=== PATIENT | female | born 1955 | race Caucasian/White ===

== ENCOUNTER 2018-12-27 13:48 | Observation (INO) ==
[2018-12-27] MEDS ORDERED: Isovue-370 500 ML BOTTLE IVP ONE ×2 (14:07→14:30)
--- NOTE | 2018-12-27 14:10 | Emergency Department Note ---
Disposition Clinical Impression: Intractable epigastric abdominal pain, Duodenal mass, S/P ERCP, Dehydration Renal cancer Qualifiers: Laterality: right Qualified Code(s): C64.1 - Malignant neoplasm of right kidney, except renal pelvis Disposition: Admitted As Inpatient Condition: Fair Referrals: Esteban Castellon DO [Primary Care Provider] - Forms: ED Satisfaction Letter, Work/School Release Time of Disposition: 17:22 General Adult HPI - General Chief complaint: ED Abdominal Pain Stated complaint: Abdominal pain Time Seen by Provider: 12/27/18 13:59 Source: patient, EMS Nursing Notes Reviewed: Yes Vital Signs Reviewed: Yes - History of Present Illness HPI Narrative: 63-year-old female with history of renal and duodenal cancer who presents the emergency department with severe abdominal pain for the past 2 days. She was sent from the cancer center today due to this pain. She states it started after episodes of vomiting and has persisted over the last 2 days. She states she has attempted the use of Maalox with slight improvement in her pain. She otherwise has had a few episodes of vomiting, most recently last night. She otherwise denies any fever, back. Pain, Chest pain, shortness of breath. She did have recent EGDon 12/16/18 showed biliary papillary stenosis, with performance of b iliary sphincterectomy, placement of a stent in the common bile duct. Recent CT abdomen/pelvis on sit 11/14/18 shows a large right-sided renal carcinoma involving the lower pole extending into the right renal hilum with scattered retroperitoneal nodes with abnormal pancreatic duct and biliary ductal dilation likely secondary to a duodenal mass. Pain Scale: 9 - Related Data Home Medications Medication Instructions Recorded Confirmed Lisinopril [Zestril] 10 mg PO DAILY 11/28/18 12/27/18 metFORMIN [Glucophage] 1,000 mg PO BIDWM 11/28/18 12/27/18 Ibuprofen [Motrin] 600 mg PO Q8HR PRN 12/27/18 12/27/18 Previous Rx's Medication Instructions Recorded HYDROcodone/Acet 5/325 mg [[place] 1 tab PO Q6H PRN #14 tab 04/29/17 5-325 mg] Citalopram [CeleXA] 20 mg PO DAILY #30 tablet 11/29/18 Ondansetron HCl [Zofran] 4 mg PO Q6HR PRN #20 tab 12/14/18 OxyCODONE/APAP 5/325 [Percocet 1 each PO Q8HR PRN 30 Days #90 12/14/18 5/325 MG] tablet Allergies Allergy/AdvReac Type Severity Reaction Status Date / Time metronidazole [From Flagyl] AdvReac Itching Verified 12/27/18 12:59 Penicillins [PCN] AdvReac See Verified 12/27/18 12:59 Comments Review of Systems: ROS per history of present illness, all other systems reviewed and negative or normal. All systems ED: reviewed and negative except as stated. 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 No apparent distress. Follow commands. Appears stated age. Neck: No JVD. Trachea midline. Neck supple. Eyes: PERRL. No scleral icterus. HENT: Normocephalic and atraumatic. Moist mucus membranes. Cardiovascular: Regular rate and rhythm. Normal S1 and S2. No murmurs appreciated. Normal capillary refill. Extremities well perfused with 2+ distal pulses bilaterally. No edema. Pulmonary: Normal and equal breath sounds bilaterally, anteriorly and posteriorly. No wheezes, rales, or rhonchi. Not in respiratory distress. Speaks in full sentences. Abdomen: Significant tenderness diffusely but more so in the epigastric area. There is guarding. There is no rebound tenderness. Neuro: Alert and oriented x3. No slurred speech. No focal deficits noted. Skin: No rashes noted on visualized skin. Musculoskeletal: No bony abnormalities visualized. Moves all extremities. Psych: Normal mood. Pleasant. Makes appropriate eye contact. - General General appearance: alert Course - Reevaluation(s) Reevaluation #1: Updated patient and family on plan for admission. Pending CTs. Time: 16:13 Vital Signs Temperature 98.6 F 12/27/18 13:51 Pulse Rate 87 12/27/18 13:51 Respiratory Rate 15 12/27/18 13:51 Blood Pressure 173/81 12/27/18 13:51 O2 Sat by Pulse Oximetry 94 12/27/18 13:51 Temperature 98.6 F 12/27/18 13:51 Pulse Rate 72 12/27/18 17:29 Respiratory Rate 17 12/27/18 17:29 Blood Pressure 144/66 12/27/18 17:29 O2 Sat by Pulse Oximetry 97 12/27/18 17:29 Oxygen Delivery Oxygen Delivery Room Air Medical Decision Making - MDM Narrative Medical decision making narrative: 63-year-old female with history of renal and duodenal cancer who presents emergency department with intractable nausea, vomiting and abdominal pain. The patient was sent from oncology office for CT chest/abdomen/pelvis and likely MRI of the lumbar and thoracic spine to evaluate for possible nephrectomy. On arrival the patient is significantly anxious and then acute distress complaining of significant abdominal pain. Vital signs are stable upon arrival. She does have guarding diffusely with significant pain in the epigastrium and right upper quadrant. The patient is recently status post ERCP. The patient was given IV fluids as well as pain medication with improvement in her symptoms though she does continue to be severely anxious. Laboratory evaluation shows no evidence of anemia, leukocytosis or electrolyte abnormality. Patient does have slight elevated BUNs/creatinine ratio. Lactate not elevated. She is no evidence of urinary tract infection. Troponin 1 negative. Otherwise her lipase is 11 and LFTs are unremarkable. CT abdomen/pelvis shows no acute findings other than interval placement of, bile duct stent with resultant air in the biliary tree. Otherwise no significant changes in her right renal mass. CT angios chest shows no evidence of pulmonary embolism. Given the patient's intractable nausea, vomiting and abdominal pain to believe she warrants admission. Oncology sent the patient to the emergency department for admission and had a [place] contacted urology to consult on the patient's case will be admitted. Discussed case with on-call hospitalist Dr. Silva who agrees with plan for admission and accepts the patient to the inpatient service. Patient agrees with and understands course of treatment plan including plan for admission. All questions answered. . - Medical Records Medical records reviewed: Yes I reviewed the patient's medical records. - Lab Data Lab results reviewed: Yes I reviewed the patient's lab results. Result diagrams: 12/27/18 14:07 12/27/18 14:07 Lab Results 12/27/18 12/27/18 12/27/18 Range/Units 14:07 14:07 14:07 WBC 6.0 (4.3-11.1) K/mcL RBC 4.09 (3.82-4.97) M/mcL Hgb 12.0 (11.5-15.4) g/dL Hct 35.7 (35.3-44.9) % MCV 87.3 (83.0-100.0) fL MCH 29.3 (28.0-33.3) pg MCHC 33.6 (31.6-35.5) g/dL RDW 12.6 (11.5-14.5) % Plt Count 249 (140-400) K/mcL MPV 9.4 (9.4-12.4) fL Immature Gran % 0.5 (0-4) % Seg Neutrophils % 66.7 % Lymphocytes % 19.4 % Monocytes % 11.4 % Eosinophils % 1.2 % Basophils % 0.8 % Neutrophils # 4.0 (1.6-8.9) K/mcL Lymphocytes # 1.2 (0.6-4.6) K/mcL Monocytes # 0.7 (0.0-1.3) K/mcL Eosinophils # 0.1 (0.0-0.6) K/mcL Basophils # 0.1 (0.0-0.2) K/mcL Sodium 135 L (136-145) mEq/L Potassium 4.2 (3.5-5.1) mEq/L Chloride 99 (98-107) mEq/L Carbon Dioxide 25 (23-29) mEq/L BUN 19 (8-23) mg/dL Creatinine 0.71 (0.60-1.20) mg/dL Est GFR ( Amer) > 60 (> 60) Est GFR (Non-Af Amer) > 60 (> 60) BUN/Creatinine Ratio 27 H (6-26) Glucose 101 (70-105) mg/dL Calculated Osmolality 282 (280-300) Lactic Acid 0.8 (0.5-2.2) mmol/L Calcium 10.7 H (8.6-10.3) mg/dL Magnesium 1.6 (1.6-2.6) mg/dL Total Bilirubin 0.4 (0.3-1.0) mg/dL Direct Bilirubin 0.1 (0.0-0.2) mg/dL Indirect Bilirubin 0.3 (0.0-1.2) mg/dL AST 8 L (13-39) Units/L ALT 8 (7-52) Units/L Alkaline Phosphatase 83 (34-104) Units/L Troponin I < 0.03 (< 0.04) ng/mL Serum Total Protein 7.1 (6.4-8.9) g/dL Albumin 4.3 (3.5-5.7) g/dL Globulin 2.8 (2.4-3.5) g/dL Albumin/Globulin Ratio 1.5 (1.1-2.2) Lipase 11 (11-82) Units/L Urine Color (Yellow) Urine Clarity (Clear) Urine pH (5.0-8.0) pH Units Ur Specific [place] (1.010-1.025) Urine Protein (Neg-Trace) mg/dL Urine Glucose (UA) (Normal) mg/dL Urine Ketones (Negative) mg/dL Urine Blood (Negative) Urine Nitrite (Negative) Urine Bilirubin (Negative) Urine Urobilinogen (Normal) mg/dL Ur Leukocyte Esterase (Negative) Ur Culture Indicated? (NO) 12/27/18 Range/Units 15:08 WBC (4.3-11.1) K/mcL RBC (3.82-4.97) M/mcL Hgb (11.5-15.4) g/dL Hct (35.3-44.9) % MCV (83.0-100.0) fL MCH (28.0-33.3) pg MCHC (31.6-35.5) g/dL RDW (11.5-14.5) % Plt Count (140-400) K/mcL MPV (9.4-12.4) fL Immature Gran % (0-4) % Seg Neutrophils % % Lymphocytes % % Monocytes % % Eosinophils % % Basophils % % Neutrophils # (1.6-8.9) K/mcL Lymphocytes # (0.6-4.6) K/mcL Monocytes # (0.0-1.3) K/mcL Eosinophils # (0.0-0.6) K/mcL Basophils # (0.0-0.2) K/mcL Sodium (136-145) mEq/L Potassium (3.5-5.1) mEq/L Chloride (98-107) mEq/L Carbon Dioxide (23-29) mEq/L BUN (8-23) mg/dL Creatinine (0.60-1.20) mg/dL Est GFR ( Amer) (> 60) Est GFR (Non-Af Amer) (> 60) BUN/Creatinine Ratio (6-26) Glucose (70-105) mg/dL Calculated Osmolality (280-300) Lactic Acid (0.5-2.2) mmol/L Calcium (8.6-10.3) mg/dL Magnesium (1.6-2.6) mg/dL Total Bilirubin (0.3-1.0) mg/dL Direct Bilirubin (0.0-0.2) mg/dL Indirect Bilirubin (0.0-1.2) mg/dL AST (13-39) Units/L ALT (7-52) Units/L Alkaline Phosphatase (34-104) Units/L Troponin I (< 0.04) ng/mL Serum Total Protein (6.4-8.9) g/dL Albumin (3.5-5.7) g/dL Globulin (2.4-3.5) g/dL Albumin/Globulin Ratio (1.1-2.2) Lipase (11-82) Units/L Urine Color Yellow (Yellow) Urine Clarity Clear (Clear) Urine pH 7.0 (5.0-8.0) pH Units Ur Specific [place] 1.009 L (1.010-1.025) Urine Protein Negative (Neg-Trace) mg/dL Urine Glucose (UA) Normal (Normal) mg/dL Urine Ketones 15 H (Negative) mg/dL Urine Blood Negative (Negative) Urine Nitrite Negative (Negative) Urine Bilirubin Negative (Negative) Urine Urobilinogen Normal (Normal) mg/dL Ur Leukocyte Esterase Negative (Negative) Ur Culture Indicated? NO (NO) - Radiology Data Radiology results reviewed: Yes I reviewed the patient's radiology results. Abdomen/Pelvis CT 12/27/18 14:07 IMPRESSION: 1. No acute pulmonary embolus. 2. Decreased size of two mediastinal lymph nodes. No new thoracic adenopathy. No new thoracic metastatic disease. 3. Interval placement of a common bile duct stent extending into the duodenum. Decreased intrahepatic and common bile duct dilation from the prior exam. The mass at the ampulla is difficult to fully characterize due to the underlying stent. 4. 6.6 cm right renal cancer is stable. 5. No new abnormality in the abdomen or pelvis. No free intraperitoneal air. D/ / 12/27/2018 16:58:07 Charlie Guillen MD / [place] Interpreting Provider: Charlie Guillen MD Chest CTA 12/27/18 14:07 IMPRESSION: 1. No acute pulmonary embolus. 2. Decreased size of two mediastinal lymph nodes. No new thoracic adenopathy. No new thoracic metastatic disease. 3. Interval placement of a common bile duct stent extending into the duodenum. Decreased intrahepatic and common bile duct dilation from the prior exam. The mass at the ampulla is difficult to fully characterize due to the underlying stent. 4. 6.6 cm right renal cancer is stable. 5. No new abnormality in the abdomen or pelvis. No free intraperitoneal air. D/ / 12/27/2018 16:58:07 Charlie Guillen MD / everett Interpreting Provider: Charlie Guillen MD Chest X-Ray 12/27/18 14:08 IMPRESSION: No evidence of acute cardiopulmonary disease. D/ / Simone Bridges MD / Simone Bridges MD Interpreting Provider: Simone Bridges MD - EKG Data EKG #1 EKG attestation: Yes I reviewed and interpreted this EKG. EKG results narrative: Normal sinus rhythm rate of 86. Normal axis. No acute ischemic changes. Compared with prior from 10/18/17 there are no significant changes. Attestation Statement - Attestation Attestation: I, Chaz Goel, examined this patient and my medical decision-making was reviewed with the PASTRYCOOK'S ASSISTANT/PA/Advanced Practice Nurse/Resident Physician. I agree with the documented findings, disposition and treatment plan as described except to the extent set forth below. 63-year-old female presents emergency Department with concerns of abdominal pain. Patient states she was recently diagnosed with renal mass, she had a biliary stent placed for improved drainage. Pain worsened after the procedure and she was sent in by the oncologist for further care and evaluation as well as for treatment of pain control. He wanted her admitted to the hospital for MRI of the spine to rule out additional lesion as well as to be evaluated by Dr. Dhaliwal the urologist for possible nephrectomy. I reviewed the EKG with the resident and agree with the interpretation.
[2018-12-27] MEDS ORDERED: *HR* FentaNYL (PF) 100 MCG/2 ML VIAL IVP ONE ×2 (14:22→16:40)
[2018-12-27] MEDS ORDERED: 0.9 % Sodium Chloride 1,000 ML IVC STA (14:22)
[2018-12-27 14:27] LABS: Basophils # 0.1 K/mcL (0.0-0.2); Basophils % 0.8 %; Eosinophils # 0.1 K/mcL (0.0-0.6); Eosinophils % 1.2 %; Hematocrit 35.7 % (35.3-44.9); Immature Granulocytes % 0.5 % (0-4); Lymphocytes # 1.2 K/mcL (0.6-4.6); Lymphocytes % 19.4 %; Mean Corpuscular HGB Conc 33.6 g/dL (31.6-35.5); Mean Corpuscular Hemoglobin 29.3 pg (28.0-33.3); Mean Corpuscular Volume 87.3 fL (83.0-100.0); Mean Platelet Volume 9.4 fL (9.4-12.4); Monocytes # 0.7 K/mcL (0.0-1.3); Monocytes % 11.4 %; Platelet Count 249 K/mcL (140-400); Red Blood Count 4.09 M/mcL (3.82-4.97); Red Cell Distribution Width 12.6 % (11.5-14.5); Segmented Neutrophils % 66.7 %
[2018-12-27 15:03] LABS: Alanine Aminotransferase 8 Units/L (7-52); Albumin 4.3 g/dL (3.5-5.7); Albumin/Globulin Ratio 1.5 (1.1-2.2); Alkaline Phosphatase 83 Units/L (34-104); Aspartate Amino Transferase 8 Units/L (13-39); BUN/Creatinine Ratio 27 (6-26); Bilirubin,Direct 0.1 mg/dL (0.0-0.2); Bilirubin,Indirect 0.3 mg/dL (0.0-1.2); Bilirubin,Total 0.4 mg/dL (0.3-1.0); Blood Urea Nitrogen 19 mg/dL (8-23); Calcium 10.7 mg/dL (8.6-10.3); Carbon Dioxide 25 mEq/L (23-29); Chloride 99 mEq/L (98-107); Globulin 2.8 g/dL (2.4-3.5); Glucose 101 mg/dL (70-105); Lipase 11 Units/L (11-82); Magnesium 1.6 mg/dL (1.6-2.6); Osmolality,Calculated 282 (280-300); Potassium 4.2 mEq/L (3.5-5.1); Sodium 135 mEq/L (136-145); Total Protein 7.1 g/dL (6.4-8.9); Troponin I < 0.03 ng/mL (< 0.04); eGFR For African Americans > 60 (> 60); eGFR For Non-African Americans > 60 (> 60)
[2018-12-27 15:31] LABS: Bilirubin,Urine Negative (Negative); Blood,Urine Negative (Negative); Clarity,Urine Clear (Clear); Color,Urine Yellow (Yellow); Glucose,Urine (UA) Normal (Normal); Ketones,Urine 15 mg/dL (Negative); Leukocyte Esterase,Urine Negative (Negative); Nitrite,Urine Negative (Negative); Protein,Urine Negative (Neg-Trace); Specific Gravity,Urine 1.009 (1.010-1.025); Urobilinogen,Urine Normal (Normal)
[2018-12-27] MEDS ORDERED: Naloxone 0.4 MG/ML INJ IVP PRN (17:30)
[2018-12-27] MEDS ORDERED: Mag Hydrox/Al Hydrox/Simeth 30 ML UDC PO PRN (17:30)
[2018-12-27] MEDS ORDERED: *HR* Promethazine 25 MG/ML VIAL IVP PRN (17:30)
[2018-12-27] MEDS ORDERED: *HR* HYDROcodone/Acet 5/325 mg TABLET PO PRN (17:31)
[2018-12-27] MEDS ORDERED: OXYCODONE Oral CONC 10 MG/0.5 ML ORAL.SYG SL PRN (17:32)
--- NOTE | 2018-12-27 17:33 | Internal Med History&Physical ---
Date of Encounter: 12/27/18 Time of Encounter: 17:33 Internal Medicine - H&P: HPI Chief complaint: Abdominal pain Admitted From: Emergency Dept Plans for Post Hospital Care: Home History of present illness: Ms. Nunez is a 63 year old female patient with a history of diabetes, hypertension, hyperlipidemia and thyroid disease who was recently found to have a right renal mass with some abnormal lesion in her duodenum presented to the ER with complaints of abdominal pain nausea and vomiting. She had recently undergo ne upper GI endoscopy. During that time she had a biliary stent placed. Biopsy of her ampulla was done which did not show any abnormal lesion. She was being worked up for her renal mass and presented to her oncology appointment today and was then sent over to the ER for further workup as she was having abdominal pain. She states that the pain has been severe since last night and present in her right upper quadrant. She is also having right flank pain. Denies any dysuria. No radiation. Not associated with diet. Pain has been unrelenting. She states that her abdominal pain has been ongoing ever since his stent was placed but it has not been this severe. She denies any fevers or chills. She had an episode of emesis this morning. No hematemesis or melena. She has been losing a lot of weight recently. Past Med Surg Social Fam HX - Past Medical History Attestation: Yes The following information was validated with the patient. Source: patient Medical history: arthritis, cancer, diabetes, GERD, hyperlipidemia, hypertension, thyroid disease Additional medical history: gastric ulcers, cataracts, kidney cancer Psychiatric history: no psych history - Past Surgical History Surgical History: cataract, cholecystectomy Additional surgical history: lt knee. 2 EYE SURGERIES,. TUBAL, bone spur removal from toes - Social History Smoking Status: Former smoker Smokeless Tobacco Status: No Alcohol use: none Drug use: none - Additional Family History Additional family history: Family history reviewed and found to be noncontributory at this time Internal Medicine - H&P: Meds HYDROcodone/Acet 5/325 mg [[place] 5-325 mg] 1 tab PO Q6H PRN #14 tab 04/29/17 [Rx] Lisinopril [Zestril] 10 mg PO DAILY 11/28/18 [History] metFORMIN [Glucophage] 1,000 mg PO BIDWM 11/28/18 [History] Citalopram [CeleXA] 20 mg PO DAILY #30 tablet 11/29/18 [Rx] Ondansetron HCl [Zofran] 4 mg PO Q6HR PRN #20 tab 12/14/18 [Rx] OxyCODONE/APAP 5/325 [Percocet 5/325 MG] 1 each PO Q8HR PRN 30 Days #90 tablet 12/14/18 [Rx] Ibuprofen [Motrin] 600 mg PO Q8HR PRN 12/27/18 [History] Allergy/AdvReac Type Severity Reaction Status Date / Time metronidazole [From Flagyl] AdvReac Itching Verified 12/27/18 12:59 Penicillins [PCN] AdvReac See Verified 12/27/18 12:59 Comments All Systems PM: A 10-system review of systems was performed and is negative for pertinent findings except as documented above in the HPI. - Constitutional Constitutional: malaise, weight loss, no chills, no fever(s), no night sweats - EENT Eyes: no change in vision, no discharge, no pain, no photophobia Ears: no ear discharge, no ear pain, no tinnitus Nose, mouth and throat: no dysphagia, no nasal discharge, no neck pain, no sore throat - Cardiovascular Cardiovascular ROS IM: no chest pain, no diaphoresis, no dyspnea, no lightheadedness, no palpitations, no syncope - Respiratory Respiratory: no cough, no dyspnea, no wheezing, no excessive phlegm production - Gastrointestinal Gastrointestinal: abdominal pain, nausea, vomiting, no diarrhea, no hematemesis, no hematochezia, no melena - Genitourinary Genitourinary: no change in urinary stream, no dysuria, no flank pain, no hematuria - Musculoskeletal Musculoskeletal ROS IM: no numbness, no tingling - Integumentary Integumentary IM: no rash, no unusual bruising - Neurological Neurological ROS: no confusion, no convulsions, no focal weakness, no numbness, no tingling, no tremor(s) - Hematologic/Lymphatic Hematologic/Lymphatic: no easy bruising - Constitutional Vitals: Temp Pulse Resp BP Pulse Ox 98.6 F 72 17 144/66 97 12/27/18 13:51 12/27/18 17:29 12/27/18 17:29 12/27/18 17:29 12/27/18 17:29 Exam: General: Patient is alert, no acute distress, oriented x 3 Head: atraumatic, normocephalic, ENT: Mucous membranes moist Eye: normal appearance, PERRL, no scleral icterus, no conjunctival injection Neck: normal inspection, trachea midline, full ROM, no carotid bruits Chest: normal inspection, symmetric chest rise Respiratory: Good respiratory effort. Normal breath sounds. No wheezing or crackles. Cardiovascular: Regular rate and rhythm. s1 and s2 normal No clicks, rubs, gallops, or murmurs. No pedal edema Abdomen: Abdomen is soft, tender in the right upper quadrant. Right CVA tenderness also present. Bowel sounds are present Musculoskeletal: Spontaneously moving all extremities Skin: warm, dry, intact. Neuro: Alert oriented x 3 normal cranial nerves, no focal deficits Psych: Patient's affect is normal Internal Med - H&P Results - Labs CBC & Chem 7: 12/27/18 14:07 12/27/18 14:07 Labs: Short CBC 12/27/18 Range/Units 14:07 WBC 6.0 (4.3-11.1) K/mcL Hgb 12.0 (11.5-15.4) g/dL Hct 35.7 (35.3-44.9) % Plt Count 249 (140-400) K/mcL Neutrophils # 4.0 (1.6-8.9) K/mcL BMP 12/27/18 14:07 Sodium 135 L Potassium 4.2 Chloride 99 Carbon Dioxide 25 BUN 19 Creatinine 0.71 Glucose 101 Calcium 10.7 H Cardiac Enzymes 12/27/18 Range/Units 14:07 Troponin I < 0.03 (< 0.04) ng/mL Liver Function 12/27/18 Range/Units 14:07 Total Bilirubin 0.4 (0.3-1.0) mg/dL Direct Bilirubin 0.1 (0.0-0.2) mg/dL AST 8 L (13-39) Units/L ALT 8 (7-52) Units/L Alkaline Phosphatase 83 (34-104) Units/L Albumin 4.3 (3.5-5.7) g/dL Urine 12/27/18 Range/Units 15:08 Urine Color Yellow (Yellow) Urine Clarity Clear (Clear) Urine pH 7.0 (5.0-8.0) pH Units Ur Specific [place] 1.009 L (1.010-1.025) Urine Protein Negative (Neg-Trace) mg/dL Urine Glucose (UA) Normal (Normal) mg/dL - Impressions ITS Impressions Abdomen/Pelvis CT 12/27/18 14:07 IMPRESSION: 1. No acute pulmonary embolus. 2. Decreased size of two mediastinal lymph nodes. No new thoracic adenopathy. No new thoracic metastatic disease. 3. Interval placement of a common bile duct stent extending into the duodenum. Decreased intrahepatic and common bile duct dilation from the prior exam. The mass at the ampulla is difficult to fully characterize due to the underlying stent. 4. 6.6 cm right renal cancer is stable. 5. No new abnormality in the abdomen or pelvis. No free intraperitoneal air. D/ / 12/27/2018 16:58:07 Charlie Guillen MD / [place] Interpreting Provider: Charlie Guillen MD Chest CTA 12/27/18 14:07 IMPRESSION: 1. No acute pulmonary embolus. 2. Decreased size of two mediastinal lymph nodes. No new thoracic adenopathy. No new thoracic metastatic disease. 3. Interval placement of a common bile duct stent extending into the duodenum. Decreased intrahepatic and common bile duct dilation from the prior exam. The mass at the ampulla is difficult to fully characterize due to the underlying stent. 4. 6.6 cm right renal cancer is stable. 5. No new abnormality in the abdomen or pelvis. No free intraperitoneal air. D/ : / 12/27/2018 16:58:07 Charlie Guillen MD / [place] Interpreting Provider: Charlie Guillen MD Chest X-Ray 12/27/18 14:08 IMPRESSION: No evidence of acute cardiopulmonary disease. D/ / Simone Bridges MD / Simone Bridges MD Interpreting Provider: Simone Bridges MD - Assessment and Plan (1) Right upper quadrant abdominal pain Current Visit: Yes Status: Acute (2) Right renal mass Current Visit: Yes Status: Acute (3) Diabetes mellitus, type 2 Current Visit: Yes Status: Chronic Qualifiers: Diabetes mellitus superintendent terminal insulin use: without half-way use Diabetes me llitus complication status: without complication Qualified Code(s): E11.9 - Type 2 diabetes mellitus without complications (4) Tobacco abuse Current Visit: Yes Status: Chronic (5) Essential hypertension Current Visit: Yes Status: Chronic - Summary of Assessment and Plan Summary of Assessment and Plan: Acute right upper quadrant abdominal pain: Patient having acute right upper quadrant abdominal pain. Etiology uncertain. No signs of cholangitis based on lab work. Patient did have a biliary stent placed and this could be causing some of her pain. Will treat symptomatically. Clear liquids only and NPO after midnight. Consult GI for evaluation. Right renal mass: Concern for renal cell carcinoma. Will consult oncology and urology for recommendations. History of diabetes mellitus type 2: Not on any medications at home. Will monitor blood sugars. Check A1c. Essential hypertension: Continue lisinopril. Tobacco abuse: Consult. Patient has not smoked for 2 days. Advised to continue stay off cigarettes. Offered nicotine patch for nicotine withdrawal if needed. Generalized anxiety disorder: Patient reportedly has symptoms of anxiety and panic attacks but has not been medicated for this. We will monitor and treat with benzodiazepines if needed. Consider starting long-term medication and psychiatric follow-up prior to discharge. Moderate risk for complications. - Time Spent With Patient Total time spent is greater than 50% in coordination of care (as documented) at patient's floor/unit and/or counseling patient:
[2018-12-27] MEDS ORDERED: Ketorolac 30 MG/ML VIAL IVP PRN (17:50)
[2018-12-27] MEDS: clonazePAM 0.5 MG TABLET PO PRN (21:33)
[2018-12-27] MEDS: Ringers Solution, Lactated 1,000 ML IVC SCH (21:36)
[2018-12-28] MEDS: clonazePAM 0.5 MG TABLET PO PRN (05:17)
[2018-12-28 05:24] LABS: Basophils % 0.7 %; Eosinophils % 0.5 %; Hematocrit 30.6 % (35.3-44.9); Immature Granulocytes % 0.2 % (0-4); Lymphocytes # 1.4 K/mcL (0.6-4.6); Lymphocytes % 24.1 %; Mean Corpuscular HGB Conc 33.3 g/dL (31.6-35.5); Mean Corpuscular Hemoglobin 29.5 pg (28.0-33.3); Mean Corpuscular Volume 88.4 fL (83.0-100.0); Mean Platelet Volume 9.3 fL (9.4-12.4); Monocytes # 0.6 K/mcL (0.0-1.3); Monocytes % 9.8 %; Neutrophils # 3.7 K/mcL (1.6-8.9); Platelet Count 233 K/mcL (140-400); Red Blood Count 3.46 M/mcL (3.82-4.97); Red Cell Distribution Width 12.4 % (11.5-14.5); Segmented Neutrophils % 64.7 %; White Blood Count 5.7 K/mcL (4.3-11.1)
[2018-12-28 05:27] LABS: Hemoglobin 10.2 g/dL (11.5-15.4)
[2018-12-28 05:47] LABS: BUN/Creatinine Ratio 26 (6-26); Blood Urea Nitrogen 15 mg/dL (8-23); Calcium 9.8 mg/dL (8.6-10.3); Carbon Dioxide 24 mEq/L (23-29); Chloride 103 mEq/L (98-107); Glucose 113 mg/dL (70-105); Osmolality,Calculated 284 (280-300); Potassium 4.1 mEq/L (3.5-5.1); Sodium 136 mEq/L (136-145); eGFR For African Americans > 60 (> 60); eGFR For Non-African Americans > 60 (> 60)
--- NOTE | 2018-12-28 08:45 | Urology - Consult Note ---
<Beth Murray N - Last Filed: 12/28/18 08:43> Date of Encounter: 12/28/18 Time of Encounter: 08:00 - Assessment and Plan (1) Right renal mass Current Visit: Yes Status: Acute Assessment and plan: Patient is a 63-year-old female who presents with a 6.6 cm lower pole right renal mass with extension into the renal hilum. CT is suggestive of renal cell carcinoma with probable metastatic disease. MRI of the lumbar and sacral spine is pending. Patient will likely require a right nephrectomy if she chooses to proceed. Dr. Dhaliwal will be in to reevaluate patient and discuss risks and benefits with patient and her family. Urology CN:HPI Consult date: 12/28/18 Reason for consult Urology: Other (right renal mass) Requesting physician: Ivory Canada History of present illness: Patient is a 63-year-old female who presents with a large right renal mass and questionable metastatic disease. Patient was referred to the [facility] after she underwent a CT scan for unintentional weight loss revealing a 5.6 x 5.5 x 4.8 cm lower pole renal mass extending into the hilum as well as a 1 .5 x 1.4 cm duodenal mass with biliary duct dilatation and scattered lymph nodes. Patient underwent a reassuring PET scan as well as a reassuring intestinal biopsy performed on 12/16/2018. Dr. Mota performed ERCP and biliary dilation with stent placement on 12/16/2018, and patient was recovering well until approximately 2 days ago when she experienced severe right upper abdominal pain. Patient was evaluated by her oncologist and subsequently sent to the emergency department for further evaluation. Patient underwent a repeat CT of the abdomen and pelvis redemonstrating a 6.6 cm right renal mass and interval decrease in 2 mediastinal lymph nodes. Patient has questionable S1 metastasis, but again, PET scan was reassuring. Patient currently has an MRI of the lumbar and sacral spine pending. Patient has been referred to [facility] urology for right renal mass. Currently, patient is lying in bed in no apparent distress, and she reports her pain is much improved. Patient denies any gross hematuria, dysuria, urgency, frequency, incontinence or flank pain. Patient reports a family history of renal cancer through a paternal aunt and a paternal uncle. Past Med Surg Social Fam HX - Past Medical History Medical history: arthritis, cancer, diabetes, GERD, hyperlipidemia, hypertension, thyroid disease Additional medical history: gastric ulcers, cataracts, kidney cancer Psychiatric history: no psych history - Past Surgical History Surgical History: cataract, cholecystectomy Additional surgical history: lt knee. 2 EYE SURGERIES,. TUBAL, bone spur removal from toes - Social History Smoking Status: Former smoker Smokeless Tobacco Status: No Alcohol use: none Drug use: none - Additional Family History Additional family history: Patient reports a paternal uncle with renal cancer; patient reports a paternal aunt with renal cancer Medications and Allergies HYDROcodone/Acet 5/325 mg [[place] 5-325 mg] 1 tab PO Q6H PRN #14 tab 04/29/17 [Rx] Lisinopril [Zestril] 10 mg PO DAILY 11/28/18 [History] metFORMIN [Glucophage] 1,000 mg PO BIDWM 11/28/18 [History] Citalopram [CeleXA] 20 mg PO DAILY #30 tablet 11/29/18 [Rx] Ondansetron HCl [Zofran] 4 mg PO Q6HR PRN #20 tab 12/14/18 [Rx] OxyCODONE/APAP 5/325 [Percocet 5/325 MG] 1 each PO Q8HR PRN 30 Days #90 tablet 12/14/18 [Rx] Ibuprofen [Motrin] 600 mg PO Q8HR PRN 12/27/18 [History] Allergy/AdvReac Type Severity Reaction Status Date / Time metronidazole [From Flagyl] AdvReac Itching Verified 12/27/18 12:59 Penicillins [PCN] AdvReac See Verified 12/27/18 12:59 Comments Review of Systems - Constitutional fatigue, weakness, no chills, no fever(s) - EENT Nose, mouth and throat: no dizziness, no headache(s) - Cardiovascular no chest pain, no diaphoresis, no dyspnea - Respiratory no cough, no dyspnea - Gastrointestinal abdominal pain, nausea, vomiting - Genitourinary Genitourinary: no difficulty voiding, no dysuria, no flank pain, no hematuria, no urinary frequency, no urinary hesitancy, no urinary incontinence, no urinary urgency - Musculoskeletal back pain, muscle weakness - Integumentary no erythema, no rash - Neurological no confusion, no syncope - Psychiatric no anxiety, no confusion - Hematologic/Lymphatic no easy bleeding, no easy bruising - Allergic/Immunologic no throat swelling, no wheezing Exam Initial Vital Signs Temp Pulse Resp BP Pulse Ox 98.6 F 87 15 173/81 94 12/27/18 13:51 12/27/18 13:51 12/27/18 13:51 12/27/18 13:51 12/27/18 13:51 - General physical appearance Present: no distress, no pain, chronically ill - Eyes Present: PERRL, normal ocular movement - ENT Present: normal nares, no hearing loss, no congestion - Neck Present: no masses, trachea midline, no lymphadenopathy - Respiratory Present: normal respiratory effort - Cardiovascular Cardiovascular exam IM: RRR - Abdomen Abdomen: Present: soft, non tender. Absent: distended - Genitourinary Present: other (no CVAT) - Integumentary Present: no rash, no abnormal pigmentation - Neurologic Present: normal coordination - Musculoskeletal Present: other (normal posture ) Urology Results - Labs 12/28/18 05:03 12/28/18 05:03 Abnormal lab results RBC 3.46 M/mcL (3.82-4.97) L 12/28/18 05:03 Hgb 10.2 g/dL (11.5-15.4) L D 12/28/18 05:03 Hct 30.6 % (35.3-44.9) L 12/28/18 05:03 MPV 9.3 fL (9.4-12.4) L 12/28/18 05:03 Sodium 135 mEq/L (136-145) L 12/27/18 14:07 0.57 mg/dL (0.60-1.20) L 12/28/18 05:03 27 (6-26) H 12/27/18 14:07 Glucose 113 mg/dL (70-105) H 12/28/18 05:03 POC Glucose 117 mg/dL (70-99) H 12/28/18 05:23 Calcium 10.7 mg/dL (8.6-10.3) H 12/27/18 14:07 AST 8 Units/L (13-39) L 12/27/18 14:07 Ur Specific [place] 1.009 (1.010-1.025) L 12/27/18 15:08 15 mg/dL (Negative) H 12/27/18 15:08 Diabetes panel 12/27/18 12/28/18 Range/Units 14:07 05:03 Sodium 135 L 136 (136-145) mEq/L Potassium 4.2 4.1 (3.5-5.1) mEq/L Chloride 99 103 (98-107) mEq/L Carbon Dioxide 25 24 (23-29) mEq/L BUN 19 15 (8-23) mg/dL Creatinine 0.71 0.57 L (0.60-1.20) mg/dL Glucose 101 113 H (70-105) mg/dL Calcium 10.7 H 9.8 (8.6-10.3) mg/dL AST 8 L (13-39) Units/L ALT 8 (7-52) Units/L Alkaline Phosphatase 83 (34-104) Units/L Albumin 4.3 (3.5-5.7) g/dL Calcium panel 12/27/18 12/28/18 Range/Units 14:07 05:03 Calcium 10.7 H 9.8 (8.6-10.3) mg/dL Albumin 4.3 (3.5-5.7) g/dL Pituitary panel 12/27/18 12/28/18 Range/Units 14:07 05:03 Sodium 135 L 136 (136-145) mEq/L Potassium 4.2 4.1 (3.5-5.1) mEq/L Chloride 99 103 (98-107) mEq/L Carbon Dioxide 25 24 (23-29) mEq/L BUN 19 15 (8-23) mg/dL Creatinine 0.71 0.57 L (0.60-1.20) mg/dL Glucose 101 113 H (70-105) mg/dL Calcium 10.7 H 9.8 (8.6-10.3) mg/dL Adrenal panel 12/27/18 12/28/18 Range/Units 14:07 05:03 Sodium 135 L 136 (136-145) mEq/L Potassium 4.2 4.1 (3.5-5.1) mEq/L Chloride 99 103 (98-107) mEq/L Carbon Dioxide 25 24 (23-29) mEq/L BUN 19 15 (8-23) mg/dL Creatinine 0.71 0.57 L (0.60-1.20) mg/dL Glucose 101 113 H (70-105) mg/dL Calcium 10.7 H 9.8 (8.6-10.3) mg/dL Total Bilirubin 0.4 (0.3-1.0) mg/dL AST 8 L (13-39) Units/L ALT 8 (7-52) Units/L Alkaline Phosphatase 83 (34-104) Units/L Albumin 4.3 (3.5-5.7) g/dL All other labs normal. - Imaging CT scan - abdomen: report reviewed, image reviewed CT scan - pelvis: report reviewed, image reviewed Consult Discharge Plan - Plan Referrals: Esteban Castellon DO [Primary Care Provider] - <Maulik Dhaliwal - Last Filed: 12/28/18 12:46> Date of Encounter: 12/28/18 - Assessment and Plan (1) Right renal mass Current Visit: Yes Status: Acute Assessment and plan: Patient seen and examined independently. History, review of systems and physical exam findings of PA verified. All pertinent imaging reviewed. I am in agreement with the assessment and plan as outlined by our Urologic Surgery Department Physician Ballet Master/Mistress, Terri. Discussed findings of solid enhancing right renal mass with patient in detail. Patient understands that solid enhancing renal masses are presumed renal cell carcinoma until proven otherwise. Unfortunately her right renal mass growing into renal hilum making possibility of successful reconstruction/nephron sparing unlikely. Normal-appearing contralateral kidney. Renal functions are normal via laboratory evaluation today. Discussed risks benefits alternatives of right nephrectomy. Patient is status post prior abdominal surgery including laparoscopic cholecystectomy as well as prior microscopic RISK ASSESSOR procedure. These prior abdominal procedures complicate the abdomen with anticipation of varying degrees of adhesions to overcome with abdominal approaches to the kidney.. Patient with other abnormal findings of duodenum, bone and lymph nodes on prior CT. Metastatic workup including PET scan as well as duodenal biopsy have been negative for metastatic renal cell carcinoma. Plan: Retroperitoneoscopic right radical nephrectomy in 1-2 weeks once patient recovered from current admission. Thank you for allowing me to participate in the care of this extremely pleasant lady. Maulik Dhaliwal MD Urology CN:HPI Consult date: 12/28/18 Exam Initial Vital Signs Temp Pulse Resp BP Pulse Ox 98.6 F 87 15 173/81 94 12/27/18 13:51 12/27/18 13:51 12/27/18 13:51 12/27/18 13:51 12/27/18 13:51 Urology Results - Labs 12/28/18 05:03 12/28/18 05:03 Abnormal lab results RBC 3.46 M/mcL (3.82-4.97) L 12/28/18 05:03 Hgb 10.2 g/dL (11.5-15.4) L D 12/28/18 05:03 Hct 30.6 % (35.3-44.9) L 12/28/18 05:03 MPV 9.3 fL (9.4-12.4) L 12/28/18 05:03 Sodium 135 mEq/L (136-145) L 12/27/18 14:07 0.57 mg/dL (0.60-1.20) L 12/28/18 05:03 27 (6-26) H 12/27/18 14:07 Glucose 113 mg/dL (70-105) H 12/28/18 05:03 POC Glucose 100 mg/dL (70-99) H 12/28/18 11:57 Calcium 10.7 mg/dL (8.6-10.3) H 12/27/18 14:07 AST 8 Units/L (13-39) L 12/27/18 14:07 Ur Specific [place] 1.009 (1.010-1.025) L 12/27/18 15:08 15 mg/dL (Negative) H 12/27/18 15:08 Diabetes panel 12/27/18 12/28/18 Range/Units 14:07 05:03 Sodium 135 L 136 (136-145) mEq/L Potassium 4.2 4.1 (3.5-5.1) mEq/L Chloride 99 103 (98-107) mEq/L Carbon Dioxide 25 24 (23-29) mEq/L BUN 19 15 (8-23) mg/dL Creatinine 0.71 0.57 L (0.60-1.20) mg/dL Glucose 101 113 H (70-105) mg/dL Calcium 10.7 H 9.8 (8.6-10.3) mg/dL AST 8 L (13-39) Units/L ALT 8 (7-52) Units/L Alkaline Phosphatase 83 (34-104) Units/L Albumin 4.3 (3.5-5.7) g/dL Calcium panel 12/27/18 12/28/18 Range/Units 14:07 05:03 Calcium 10.7 H 9.8 (8.6-10.3) mg/dL Albumin 4.3 (3.5-5.7) g/dL Pituitary panel 12/27/18 12/28/18 Range/Units 14:07 05:03 Sodium 135 L 136 (136-145) mEq/L Potassium 4.2 4.1 (3.5-5.1) mEq/L Chloride 99 103 (98-107) mEq/L Carbon Dioxide 25 24 (23-29) mEq/L BUN 19 15 (8-23) mg/dL Creatinine 0.71 0.57 L (0.60-1.20) mg/dL Glucose 101 113 H (70-105) mg/dL Calcium 10.7 H 9.8 (8.6-10.3) mg/dL Adrenal panel 12/27/18 12/28/18 Range/Units 14:07 05:03 Sodium 135 L 136 (136-145) mEq/L Potassium 4.2 4.1 (3.5-5.1) mEq/L Chloride 99 103 (98-107) mEq/L Carbon Dioxide 25 24 (23-29) mEq/L BUN 19 15 (8-23) mg/dL Creatinine 0.71 0.57 L (0.60-1.20) mg/dL Glucose 101 113 H (70-105) mg/dL Calcium 10.7 H 9.8 (8.6-10.3) mg/dL Total Bilirubin 0.4 (0.3-1.0) mg/dL AST 8 L (13-39) Units/L ALT 8 (7-52) Units/L Alkaline Phosphatase 83 (34-104) Units/L Albumin 4.3 (3.5-5.7) g/dL All other labs normal.
[2018-12-28] MEDS: Ringers Solution, Lactated 1,000 ML IVC SCH ×2 (09:14→21:36)
--- NOTE | 2018-12-28 12:04 | Gastroenterology Consult Note ---
Date of Encounter: 12/28/18 Time of Encounter: 10:30 - Assessment and plan (1) Right upper quadrant abdominal pain Current Visit: Yes Status: Acute Assessment and plan: EUS 12/16/[address] Mota did not show any lesion or mass. ERCP 12/16/[address] Mota with biliary papillary stenosis, biliary sphincterotomy completed, temporary stent placed. No ampullary mass noted on EUS or ERCP. Stent remains in place. LFTs normal. No indication for further intervention. (2) Right renal mass Current Visit: Yes Status: Acute Assessment and plan: Urology consulted. (3) S/P ERCP Current Visit: Yes Status: Acute (4) Abdominal gas pain Current Visit: Yes Status: Acute Assessment and plan: Try Gas-X or Beano 30 minutes before meals. 1.) Avoid chewing gum or sucking on hard candies (especially sugarless gum or dietetic candies that contain sorbitol). 2.) Eliminate carbonated beverages and reduce foods containing high-fructose corn syrup from your diet. 3.) Avoid milk and milk products, such as soft cheeses 4.) Eat less gas-producing foods such as: Vegetables: brussel sprouts, broccoli, bagels, bananas, cabbage, cauliflower,cucumbers,carrots, celery and onion. Or when eating such foods, you may consider trying wiwq-ziy-[id number] gas relief medicines, which may help breakdown the non-absorbable carbohydrates found in these foods. 5.) Exercise helps to stimulate the passage of gas through the digestive tract, consider walking. 6.) Consider trying oklu-gbb-[id number] gas relief medicines such as Activated charcoal one tablet with meals or Beano 1-2 tablets or 5-10 drops with meals or Gas-X 1 tablet three times a day with meals or bismuth subsalicylate 524 mg three times a day with meals as needed. - Time Spent With Patient Total time spent is greater than 50% in coordination of care (as documented) at patient's floor/unit and/or counseling patient: GI History of Present Illness - Data of Consult Patient: known to practice within the last 3 years Consult date: 12/28/18 Requesting Physician: Gema Braun MD - Consult Narrative Reason for consult: RUQ pain History of present illness: Ms. Nunez is a 63 year old female with PMHx of arthritis, DM, GERD, HLD, HTN who was recently found to have a right renal masswho was recently found to have a right renal mass and concern of lesion in duodenum. She presented to the ED with complaints of abdominal pain nausea and vomiting. She recently had EUS and ERCP completed on 12/16/[address] Mota. EUS did not show any lesion or mass, ERCP with biliary papillary stenosis, biliary sphincterotomy completed, temporary stent placed. CT A/P on admission showed intrahepatic biliary gas, CBD stent to duodenum decrease in intrahepatic and CBD dilation, stable pancreatic duct 4 mm, 6.6 cm right renal mass. She states abdominal pain was severe the night before admission but has now resolved. She reported having "lots of gas" which has passed. She denies any fevers, chills, chest pain, hematemesis, melena, hematochezia. Procedures: EUS 12/16/2017 Dr. Mota: Dilated pancreatic duct and common bile duct. ERCP 12/16/2018 Dr. Mota: Biliary papillary stenosis, biliary sphincterotomy completed, temporary stent placed. EGD 06/19/2018 Dr. Mota: Food and lower third of the esophagus negative for EOE, esophageal stenosis which was dilated. NSAIDs: Motrin Anticoagulation: None Past Med Surg Social Fam HX - Past Medical History Medical history: arthritis, cancer, diabetes, GERD, hyperlipidemia, hypertension, thyroid disease Additional medical history: gastric ulcers, cataracts, kidney cancer Psychiatric history: no psych history - Past Surgical History Surgical History: cataract, cholecystectomy Additional surgical history: lt knee. 2 EYE SURGERIES,. TUBAL, bone spur re moval from toes - Social History Smoking Status: Former smoker Smokeless Tobacco Status: No Alcohol use: none Drug use: none - Gastrointestinal Gastrointestinal: Present: as per HPI - Constitutional Constitutional: as per HPI - EENT Eyes: as per HPI Ears: Present: as per HPI Nose, mouth and throat: Present: as per HPI - Cardiovascular Cardiovascular ROS: Present: as per HPI - Respiratory Respiratory IM: Present: as per HPI - Genitourinary Genitourinary: Absent: change in color, Urinary frequency - Neurological ROS Neurological GI: Present: as per HPI - Hematologic/Lymphatic Hematologic/Lymphatic pediatric: Present: as per HPI - Musculoskeletal Musculoskeletal ROS GI: Present: as per HPI - Integumentary Integumentary GI: Present: as per HPI - Psychiatric ROS Psychiatric GI: Present: as per HPI - Endocrine Endocrine IM: Present: as per HPI - Constitutional Vitals: Temp Pulse Resp BP Pulse Ox 98.2 F 57 15 113/55 95 12/28/18 10:10 12/28/18 10:10 12/28/18 10:10 12/28/18 10:10 12/28/18 10:10 General appearance: Present: cooperative, A&O X 3, no acute distress, answers questions appropriately - Head Head exam: Present: atraumatic, normocephalic - Eye Eye exam: Present: normal appearance, sclera anicteric - ENT ENT exam: Present: mucous membranes dry - Neck Neck exam general surgery: Present: normal inspection, trachea midline - Respiratory Respiratory exam: Present: CTAB. Absent: rales, rhonchi - Cardiovascular Cardiovascular exam: Present: RRR, +S1, +S2 - GI/Abdominal GI/Abdominal exam: Present: soft, no peritoneal signs. Absent: distended, firm, guarding, tenderness - Rectal Rectal exam: Present: deferred - Extremities Exam Extremities exam: Present: warm - Neurological Exam Neurological exam: Present: no focal deficits - Psychiatric Psychiatric exam: Present: normal affect, normal mood - Skin Skin exam: Present: dry, intact, normal color, warm Results - Labs CBC & Chem 7: 12/28/18 05:03 12/28/18 05:03 Labs: Last Result 12/28/18 05:03 Calcium 9.8 Entire Visit 12/28/18 05:03 Hgb 10.2 L D Hct 30.6 L - Impressions Impressions Abdomen/Pelvis CT 12/27/18 14:07 IMPRESSION: 1. No acute pulmonary embolus. 2. Decreased size of two mediastinal lymph nodes. No new thoracic adenopathy. No new thoracic metastatic disease. 3. Interval placement of a common bile duct stent extending into the duodenum. Decreased intrahepatic and common bile duct dilation from the prior exam. The mass at the ampulla is difficult to fully characterize due to the underlying stent. 4. 6.6 cm right renal cancer is stable. 5. No new abnormality in the abdomen or pelvis. No free intraperitoneal air. D/ / 12/27/2018 16:58:07 Charlie Guillen MD / everett Interpreting Provider: Charlie Guillen MD Chest CTA 12/27/18 14:07 IMPRESSION: 1. No acute pulmonary embolus. 2. Decreased size of two mediastinal lymph nodes. No new thoracic adenopathy. No new thoracic metastatic disease. 3. Interval placement of a common bile duct stent extending into the duodenum. Decreased intrahepatic and common bile duct dilation from the prior exam. The mass at the ampulla is difficult to fully characterize due to the underlying stent. 4. 6.6 cm right renal cancer is stable. 5. No new abnormality in the abdomen or pelvis. No free intraperitoneal air. D/ / 12/27/2018 16:58:07 Charlie Guillen MD / everett Interpreting Provider: Charlie Guillen MD Chest X-Ray 12/27/18 14:08 IMPRESSION: No evidence of acute cardiopulmonary disease. D/ / Simone Bridges MD / Simone Bridges MD Interpreting Provider: Simone Bridges MD Consult Discharge Plan - Plan Referrals: Esteban Castellon DO [Primary Care Provider] -
[2018-12-28] MEDS: Simethicone 80 MG TAB.CHEW PO SCH ×2 (14:12→21:37)
--- NOTE | 2018-12-28 16:13 | Internal Med Progress Note ---
Hospitalist Progress Note - Encounter Date of Encounter: 12/28/18 Time of Encounter: 16:08 - Subjective Interval History: patient is doing we,, abdominal pain resolved, will advance diet to regular - Exam Vitals: Temp Pulse Resp BP Pulse Ox 98.4 F 68 16 123/71 95 12/28/18 14:32 12/28/18 14:32 12/28/18 14:32 12/28/18 14:32 12/28/18 14:32 Exam: General: Patient is alert, no acute distress, oriented x 3 Head: atraumatic, normocephalic, ENT: Mucous membranes moist Eye: normal appearance, PERRL, no scleral icterus, no conjunctival injection Neck: normal inspection, trachea midline, full ROM, no carotid bruits Chest: normal inspection, symmetric chest rise Respiratory: Good respiratory effort. Normal breath sounds. No wheezing or crackles. Cardiovascular: Regular rate and rhythm. s1 and s2 normal No clicks, rubs, gallops, or murmurs. No pedal edema Abdomen: Abdomen is soft, tender in the right upper quadrant. Right CVA tenderness also present. Bowel sounds are present Musculoskeletal: Spontaneously moving all extremities Skin: warm, dry, intact. Neuro: Alert oriented x 3 normal cranial nerves, no focal deficits Psych: Patient's affect is normal - Summary of Assessment and Plan Summary of Assessment and Plan: Ms. Nunez is a 63 year old female patient with a history of diabetes, hypertension, hyperlipidemia and thyroid disease who was recently found to have a right renal mass with some abnormal lesion in her duodenum presented to the ER with complaints of abdominal pain nausea and vomiting. She had recently undergone upper GI endoscopy. During that time she had a biliary stent placed. Biopsy of her ampulla was done which did not show any abnormal lesion. (1) Right upper quadrant abdominal pain, GI is on board, Gas-X added, pain improved Current Visit: Yes Status: Acute Assessment and plan: EUS 12/16/[address] Mota did not show any lesion or mass. ERCP 12/16/[address] Mota with biliary papillary stenosis, biliary sphincterotomy completed, temporary stent placed. No ampullary mass noted on EUS or ERCP. Stent remains in place. LFTs normal. (2) Right renal mass CT is suggestive of renal cell carcinoma with probable metastatic disease. Urology is consulted, palnning Nephrectomy on 01/11. (3) DM type 2 (4) Hypertension, conitnue lisinopril (5) Tobacco abuse: Consult. Patient has not smoked for 2 days. Advised to continue stay off cigarettes. Offered nicotine patch for nicotine withdrawal if needed. (6) Generalized anxiety disorder: Patient reportedly has symptoms of anxiety and panic attacks but has not been medicated for this. - Time Spent with Patient Total time spent is greater than 50% in coordination of care (as documented) at patient's floor/unit and/or counseling patient: 25 - 35 minutes Internal Medicine: Result - Labs CBC & Chem 7: 12/28/18 05:03 12/28/18 05:03 Labs: Short CBC 12/28/18 Range/Units 05:03 WBC 5.7 (4.3-11.1) K/mcL Hgb 10.2 L D (11.5-15.4) g/dL Hct 30.6 L (35.3-44.9) % Plt Count 233 (140-400) K/mcL Neutrophils # 3.7 (1.6-8.9) K/mcL BMP 12/27/18 12/28/18 14:07 05:03 Sodium 135 L 136 Potassium 4.2 4.1 Chloride 103 Carbon Dioxide 24 BUN 15 Creatinine 0.57 L Glucose 113 H Calcium 9.8 - Impressions Impressions Abdomen/Pelvis CT 12/27/18 14:07 IMPRESSION: 1. No acute pulmonary embolus. 2. Decreased size of two mediastinal lymph nodes. No new thoracic adenopathy. No new thoracic metastatic disease. 3. Interval placement of a common bile duct stent extending into the duodenum. Decreased intrahepatic and common bile duct dilation from the prior exam. The mass at the ampulla is difficult to fully characterize due to the underlying stent. 4. 6.6 cm right renal cancer is stable. 5. No new abnormality in the abdomen or pelvis. No free intraperitoneal air. D/ / 12/27/2018 16:58:07 Charlie Guillen MD / everett Interpreting Provider: Charlie Guillen MD Chest CTA 12/27/18 14:07 IMPRESSION: 1. No acute pulmonary embolus. 2. Decreased size of two mediastinal lymph nodes. No new thoracic adenopathy. No new thoracic metastatic disease. 3. Interval placement of a common bile duct stent extending into the duodenum. Decreased intrahepatic and common bile duct dilation from the prior exam. The mass at the ampulla is difficult to fully characterize due to the underlying stent. 4. 6.6 cm right renal cancer is stable. 5. No new abnormality in the abdomen or pelvis. No free intraperitoneal air. D/ / 12/27/2018 16:58:07 Charlie Guillen MD / everett Interpreting Provider: Charlie Guillen MD Consult Discharge Plan - Plan Referrals: Esteban Castellon DO [Primary Care Provider] -
--- NOTE | 2018-12-28 16:53 | Oncology Inp Consult Note ---
<SpikeBran - Last Filed: 12/28/18 16:58> Date of Encounter: 12/28/18 - Data of Consult Requesting Physician: Gema Braun MD Primary Care Provider: Esteban Castellon DO Medications and Allergies Lisinopril [Zestril] 10 mg PO DAILY 11/28/18 [History] metFORMIN [Glucophage] 1,000 mg PO BIDWM 11/28/18 [History] Citalopram [CeleXA] 20 mg PO DAILY #30 tablet 11/29/18 [Rx] Ondansetron HCl [Zofran] 4 mg PO Q6HR PRN #20 tab 12/14/18 [Rx] Benzocaine/Resorcin/Aloe/E,A,D [Vagisil Cream] 1 appl TP DAILY PRN 12/28/18 [History] Naproxen Sodium [Aleve] 440 - 660 mg PO QAM PRN 12/28/18 [History] Nystatin Cream [Mycostatin Cream] 12/28/18 [History] Omeprazole [PriLOSEC] 40 mg PO QAM PRN 12/28/18 [History] OxyCODONE/APAP 5/325 [Percocet 5/325 MG] 1 tab PO Q8HR PRN 12/28/18 [History] Simvastatin [Zocor] 40 mg PO HS 12/28/18 [History] Allergy/AdvReac Type Severity Reaction Status Date / Time doxycycline AdvReac Itching Verified 12/28/18 18:40 metronidazole [From Flagyl] AdvReac Itching Verified 12/28/18 18:40 Penicillins [PCN] AdvReac Itching Verified 12/28/18 18:40 Consult Discharge Plan - Plan Referrals: Esteban Castellon DO [Primary Care Provider] - Inpatient Charges Provider: Dr. Richard Lala Consult - Inpatient: [id number] - Attending Attestation I examined this patient and my medical decision-making was reviewed with the Advanced Practice Nurse. I agree with the documented findings, disposition and treatment plan as described except to the extent set forth below. -Patient with large renal mass and abdominal pain. -Abdominal pain has improved significantly now and she is able to eat and drink. -She is scheduled for a nephrectomy 01/11/19. We will follow up with her two weeks after the surgery. -Greatly appreciate Urology input in the case. Thanks for the consult and excellent care of the patient. <Eileen Floyd M - Last Filed: 12/28/18 18:46> Date of Encounter: 12/28/18 Time of Encounter: 16:30 Assessment and Plan (1) Intractable epigastric abdominal pain Status: Acute Assessment and plan: Pain improved. Patient alert and eating lunch. Denies nausea or vomiting. Wishes to go home. (2) Right renal mass Status: Acute Assessment and plan: Patient evaluated by Urology. She notes nephrectomy is scheduled for 01/11/19. Patient to follow-up with Dr. Lala 2 weeks after procedure (around 01/25/19). - Data of Consult Patient: known to practice within the last 3 years Requesting Physician: Gema Braun MD Primary Care Provider: Esteban Castellon DO - Consult Narrative History of present illness: Talisha, a 63yo female with known history of large renal mass ( 5.6x5.5x4.8cm) presented to the [facility] on 12/27/18 for follow-up after EGD, EUS, and ERCP on 12/16/18. A temporary stent was placed in the common bile duct. She c/o RUQ abdominal pain, nausea, and decreased PO intake since procedure. She denies fever or chills. Denies chest pain or shortness of breath. Due to worsening symptoms, patient was sent to ED for evaluation. 1. Large heterogenous enhancing mass in the lower pole of the right kidney extending into the renal hilum (measuring 5.6 x 5.5 x 4.8 cm) 2. Nodular density in the duodenum measuring 1.5 x 1.4 cm w/ abnormal pancreatic and biliary ductal dilatation 2/2 to the mass 3. Calcified splenic granulomas 4. Hypodense nodules scattered throughout the liver 5. Small indeterminate LNs noted within neck and mediastinum 6. Tiny punctate pulmonary nodules noted on CT Chest w/contrast 7. Right kidney stones 8. Uterine fibroids 9. Anemia 10. Significant tobacco abuse since being a teenager. Past Med Surg Social Fam HX - Past Medical History Medical history: arthritis, cancer, diabetes, GERD, hyperlipidemia, hypertension, thyroid disease Additional medical history: gastric ulcers, cataracts, kidney cancer Psychiatric history: no psych history - Past Surgical History Surgical History: cataract, cholecystectomy Additional surgical history: lt knee. 2 EYE SURGERIES,. TUBAL, bone spur removal from toes - Social History Smoking Status: Former smoker Smokeless Tobacco Status: No Alcohol use: none Drug use: none Constitutional: Absent: fatigue, fever(s) Cardiovascular: Absent: chest pain, dyspnea, edema, palpitations Respiratory: Absent: cough, dyspnea Gastrointestinal: Present: abdominal pain, belching, nausea. Absent: hematochezia, melena Oncology - Exam - Additional findings Additional findings: General: Alert and oriented, well appearing. Mental Status: Affect appropriate for circumstances Skin: No rashes or petechiae. Lungs: Clear to auscultation Cardiovascular: Regular rate and rhythm. No gallops, murmurs, or rubs. Abdomen: Soft, nontender; no organomegaly or masses palpable. Extremities: No edema. No calf swelling or tenderness. No joint deformity. Neurologic: Alert, cranial nerves II-XII intact; no focal weakness or sensory abnormalities. Oncology Inpatient Results Abdomen/Pelvis CT 12/27/18 14:07 IMPRESSION: 1. No acute pulmonary embolus. 2. Decreased size of two mediastinal lymph nodes. No new thoracic adenopathy. No new thoracic metastatic disease. 3. Interval placement of a common bile duct stent extending into the duodenum. Decreased intrahepatic and common bile duct dilation from the prior exam. The mass at the ampulla is difficult to fully characterize due to the underlying stent. 4. 6.6 cm right renal cancer is stable. 5. No new abnormality in the abdomen or pelvis. No free intraperitoneal air. D/ / 12/27/2018 16:58:07 Charlie Guillen MD / [place] Interpreting Provider: Charlie Guillen MD Chest CTA 12/27/18 14:07 IMPRESSION: 1. No acute pulmonary embolus. 2. Decreased size of two mediastinal lymph nodes. No new thoracic adenopathy. No new thoracic metastatic disease. 3. Interval placement of a common bile duct stent extending into the duodenum. Decreased intrahepatic and common bile duct dilation from the prior exam. The mass at the ampulla is difficult to fully characterize due to the underlying stent. 4. 6.6 cm right renal cancer is stable. 5. No new abnormality in the abdomen or pelvis. No free intraperitoneal air. D/ / 12/27/2018 16:58:07 Charlie Guillen MD / [place] Interpreting Provider: Charlie Guillen MD Chest X-Ray 12/27/18 14:08 IMPRESSION: No evidence of acute cardiopulmonary disease. D/ / Simone Bridges MD / Simone Bridges MD Interpreting Provider: Simone Bridges MD
[2018-12-28] MEDS ORDERED: *HR* Metformin 500 MG TABLET PO SCH (17:00)
[2018-12-28] MEDS: *HR* Heparin 5,000 UNIT/ML VIAL SQ SCH ×2 (17:20→21:38)
--- NOTE | 2018-12-28 18:29 | Electrocardiograph Report ---
[address] [address] Test Date: 2018-12-27 Pat Name: Talisha Nunez Department: EXAM8 Room: 3A33 Gender: F Retention Manager: : [id number] Requested By: Ivory Canada Order Number: [id number] Reading MD: Cuco Alatorre Measurements Intervals [place] Rate: 86 P: 72 AL: 113 QRS: 70 QRSD: 93 T: 55 QT: 374 QTc: 448 Interpretive Statements Sinus rhythm Borderline short AL interval Electronically Signed On 12-28-2018 18:28:05 EDT by Cuco Alatorre
[2018-12-29] MEDS ORDERED: Dextrose Gel 15 GM/37.5 ML TUBE PO PRN ×2 (04:39)
[2018-12-29] MEDS ORDERED: *HR* Dextrose 50 % in Water (Syg) 50 ML SYRINGE IVP PRN (04:39)
[2018-12-29] MEDS ORDERED: D5% in Water 1,000 ML IVC PRN (04:39)
[2018-12-29 05:23] LABS: Basophils % 0.5 %; Eosinophils # 0.2 K/mcL (0.0-0.6); Eosinophils % 2.6 %; Hematocrit 29.1 % (35.3-44.9); Hemoglobin 9.4 g/dL (11.5-15.4); Immature Granulocytes % 0.2 % (0-4); Lymphocytes # 1.8 K/mcL (0.6-4.6); Lymphocytes % 29.3 %; Mean Corpuscular HGB Conc 32.3 g/dL (31.6-35.5); Mean Corpuscular Hemoglobin 29.1 pg (28.0-33.3); Mean Corpuscular Volume 90.1 fL (83.0-100.0); Mean Platelet Volume 9.6 fL (9.4-12.4); Monocytes # 0.7 K/mcL (0.0-1.3); Monocytes % 10.4 %; Neutrophils # 3.6 K/mcL (1.6-8.9); Platelet Count 191 K/mcL (140-400); Red Blood Count 3.23 M/mcL (3.82-4.97); Red Cell Distribution Width 12.4 % (11.5-14.5); White Blood Count 6.3 K/mcL (4.3-11.1)
[2018-12-29 05:42] LABS: Alanine Aminotransferase 7 Units/L (7-52); Albumin 3.3 g/dL (3.5-5.7); Albumin/Globulin Ratio 1.6 (1.1-2.2); Alkaline Phosphatase 64 Units/L (34-104); Aspartate Amino Transferase 9 Units/L (13-39); BUN/Creatinine Ratio 23 (6-26); Bilirubin,Direct 0.1 mg/dL (0.0-0.2); Bilirubin,Indirect 0.2 mg/dL (0.0-1.2); Bilirubin,Total 0.3 mg/dL (0.3-1.0); Blood Urea Nitrogen 15 mg/dL (8-23); Calcium 9.5 mg/dL (8.6-10.3); Carbon Dioxide 26 mEq/L (23-29); Chloride 103 mEq/L (98-107); Globulin 2.1 g/dL (2.4-3.5); Glucose 93 mg/dL (70-105); Magnesium 1.3 mg/dL (1.6-2.6); Osmolality,Calculated 283 (280-300); Potassium 4.1 mEq/L (3.5-5.1); Sodium 136 mEq/L (136-145); Total Protein 5.4 g/dL (6.4-8.9); eGFR For African Americans > 60 (> 60); eGFR For Non-African Americans > 60 (> 60)
[2018-12-29] MEDS: *HR* Heparin 5,000 UNIT/ML VIAL SQ SCH (06:08)
[2018-12-29] MEDS ORDERED: Insulin LISPRO 300 UNITS/3 ML VIAL SQ SCH ×2 (07:30→21:00)
[2018-12-29] MEDS: Ringers Solution, Lactated 1,000 ML IVC SCH (08:12)
[2018-12-29] MEDS: Simethicone 80 MG TAB.CHEW PO SCH (08:13)
[2018-12-29 11:24] VITALS: BP 104/62
--- NOTE | 2018-12-29 12:25 | Discharge Summary ---
- NOTES TO OUTPATIENT PROVIDER Notes to Outpatient Provider: folow up with urology for surgery on 01/11 Date of Encounter: 12/29/18 Time of Encounter: 12:23 Hospital course: Ms. Nunez is a 63 year old female patient with a history of diabetes, hypertension, hyperlipidemia and thyroid disease who was recently found to have a right renal mass with some abnormal lesion in her duodenum presented to the ER with complaints of abdominal pain nausea and vomiting. She had recently undergone upper GI endoscopy. During that time she had a biliary stent placed. Biopsy of her ampulla was done which did not show any abnormal lesion. (1) Right upper quadrant abdominal pain, GI is on board, Gas-X added, pain improved Current Visit: Yes Status: Acute Assessment and plan: EUS 12/16/[address] Mota did not show any lesion or mass. ERCP 12/16/[address] Mota with biliary papillary stenosis, biliary sphincterotomy completed, temporary stent placed. No ampullary mass noted on EUS or ERCP. Stent remains in place. LFTs normal. pain resolved, tolerated regular diet GI recommmendation discussed, patient is given Gas-X script (2) Right renal mass CT is suggestive of renal cell carcinoma with probable metastatic disease. Urology is consulted, Nephrectomy on 01/11. (3) DM type 2 (4) Hypertension, conitnue lisinopril (5) Tobacco abuse: Consult. Patient has not smoked for 2 days. Advised to continue stay off cigarettes. Offered nicotine patch for nicotine withdrawal if needed. (6) Generalized anxiety disorder: Patient reportedly has symptoms of anxiety and panic attacks but has not been medicated for this. discharge [facility] condition Discharge discussed with: patient, family Time spent discussing smoking cessation with patient: 3 to 10 minutes - Time Spent with Patient Total time spent providing and/or coordinating discharge services: Time spent: Less than 30 minutes - Discharge Medications Prescriptions: New Simethicone [Gas-X] 80 mg PO TID #60 tab.chew Continued metFORMIN [Glucophage] 1,000 mg PO BIDWM Lisinopril [Zestril] 10 mg PO DAILY Citalopram [CeleXA] 20 mg PO DAILY #30 tablet Ondansetron HCl [Zofran] 4 mg PO Q6HR PRN #20 tab PRN Reason: Nausea Benzocaine/Resorcin/Aloe/E,A,D [Vagisil Cream] 1 appl TP DAILY PRN PRN Reason: REDNESS/ITCH/IRRITATION Naproxen Sodium [Aleve] 440 - 660 mg PO QAM PRN PRN Reason: Pain Nystatin Cream [Mycostatin Cream] 1 appl TP DAILY PRN PRN Reason: REDNESS/IRRITATION/ ITCH Omeprazole [PriLOSEC] 40 mg PO QAM PRN PRN Reason: GERD OxyCODONE/APAP 5/325 [Percocet 5/325 MG] 1 tab PO Q8HR PRN PRN Reason: Pain Simvastatin [Zocor] 40 mg PO HS Home Medications: Lisinopril [Zestril] 10 mg PO DAILY 11/28/18 [History] metFORMIN [Glucophage] 1,000 mg PO BIDWM 11/28/18 [History] Citalopram [CeleXA] 20 mg PO DAILY #30 tablet 11/29/18 [Rx] Ondansetron HCl [Zofran] 4 mg PO Q6HR PRN #20 tab 12/14/18 [Rx] Benzocaine/Resorcin/Aloe/E,A,D [Vagisil Cream] 1 appl TP DAILY PRN 12/28/18 [History] Naproxen Sodium [Aleve] 440 - 660 mg PO QAM PRN 12/28/18 [History] Nystatin Cream [Mycostatin Cream] 1 appl TP DAILY PRN 12/28/18 [History] Omeprazole [PriLOSEC] 40 mg PO QAM PRN 12/28/18 [History] OxyCODONE/APAP 5/325 [Percocet 5/325 MG] 1 tab PO Q8HR PRN 12/28/18 [History] Simvastatin [Zocor] 40 mg PO HS 12/28/18 [History] Simethicone [Gas-X] 80 mg PO TID #60 tab.chew 12/29/18 [Rx] Allergies/Adverse Reactions: Allergy/AdvReac Type Severity Reaction Status Date / Time doxycycline AdvReac Itching Verified 12/28/18 18:40 metronidazole [From Flagyl] AdvReac Itching Verified 12/28/18 18:40 Penicillins [PCN] AdvReac Itching Verified 12/28/18 18:40 Date of admission: 12/27/18 19:14 Primary care physician: Esteban Castellon DO Consults: 12/27/18 15:46 Consult to Oncology [CONS] Stat Consulting Provider: Oncology [facility] Reason for Consult: renal and duodenal masses, established patient Call Completed: Yes Consult to Urology [CONS] Stat Consulting Provider: Urology [place] Reason for Consult: right renal mass Call Completed: Yes 12/27/18 18:10 Consult to Gastroenterology [CONS] Stat Consulting Provider: Gastroenterology [place] Reason for Consult: Acute RUQ pain; recent biliary stent placement Time Notified: 18:10 Call Completed: No - Constitutional Vitals: Temp Pulse Resp BP Pulse Ox 98.5 F 67 16 104/62 93 12/29/18 11:14 12/29/18 11:14 12/29/18 11:14 12/29/18 11:14 12/29/18 11:14 General appearance: Present: A&O X 3, pleasant Exam: General: Patient is alert, no acute distress, oriented x 3 Head: atraumatic, normocephalic, ENT: Mucous membranes moist Eye: normal appearance, PERRL, no scleral icterus, no conjunctival injection Neck: normal inspection, trachea midline, full ROM, no carotid bruits Chest: normal inspection, symmetric chest rise Respiratory: Good respiratory effort. Normal breath sounds. No wheezing or crackles. Cardiovascular: Regular rate and rhythm. s1 and s2 normal No clicks, rubs, gallops, or murmurs. No pedal edema Abdomen: Abdomen is soft, tender in the right upper quadrant. Right CVA tenderness also present. Bowel sounds are present Musculoskeletal: Spontaneously moving all extremities Skin: warm, dry, intact. Neuro: Alert oriented x 3 normal cranial nerves, no focal deficits Psych: Patient's affect is normal - Patient Status Disposition: Home, Self-Care Condition: Good Functional capacity at discharge: independent ambulation Overall status at discharge: patient is back to baseline - Discharge Instructions Follow Up With: Esteban Castellon DO [Primary Care Provider] -
[2018-12-29 14:31] LABS: Estimated Average Glucose 131 mg/dl
--- NOTE | 2018-12-29 15:21 | Oncology Inp Progress Note ---
<Eileen Floyd - Last Filed: 12/29/18 15:19> Date of Encounter: 12/29/18 Time of Encounter: 12:00 (1) Intractable epigastric abdominal pain Status: Acute Assessment and plan: Pain improved. Patient alert and eating lunch. Denies nausea or vomiting. Wishes to go home. (2) Right renal mass Status: Acute Assessment and plan: Patient evaluated by Urology. She notes nephrectomy is scheduled for 01/11/19. Patient to follow-up with Dr. Lala 2 weeks after procedure (around 01/25/19). Oncology: Subj Interval history: Patient is awake and alert. She states that she is feeling very well this morning and is planning for discharge in the next hour. Denies nausea, vomiting, constipation, diarrhea, or abdominal pain. She has been able to the eat without difficulty. Discussed plan to follow up with Dr. Lala at the [facility] 2 weeks [place] [id number]. Patient verbalizes understanding. - Additional findings Additional findings: General: Alert and oriented, well appearing. Mental Status: Affect appropriate for circumstances Lungs: Clear to auscultation Cardiovascular: Regular rate and rhythm. No gallops, murmurs, or rubs. Abdomen: Soft, nontender; no organomegaly or masses palpable. Neurologic: Alert, cranial nerves II-XII intact; no focal weakness or sensory abnormalities. Oncology: Obj Data - Labs CBC & Chem 7: 12/29/18 04:40 12/29/18 04:40 Consult Discharge Plan - Plan Instructions: Acute Abdominal Pain (GEN) Referrals: Esteban Castellon DO [Primary Care Provider] - 01/03/19 8:20 am Prescriptions: Simethicone [Gas-X] 80 mg PO TID #60 tab.chew Inpatient Charges Provider: Dr. Richard Lala <Bran Lala - Last Filed: 12/29/18 16:09> Date of Encounter: 12/29/18 Oncology: Obj Data - Labs CBC & Chem 7: 12/29/18 04:40 12/29/18 04:40 Inpatient Charges Provider: Dr. Richard Lala Follow up - Inpatient: [id number] - Attending Attestation I examined this patient and my medical decision-making was reviewed with the Advanced Practice Nurse. I agree with the documented findings, disposition and treatment plan as described except to the extent set forth below. Patient scheduled for right sided nephrectomy 01/11/19 Abdominal pain has significantly improved We will follow up with her two weeks after the surgery We will sign off at this time, please call us with any further questions.
== END 2018-12-29 13:36 | disposition home or self-care (01) ==
LOC: EMEROOARM 13:48 → 3ANU 13:48 → SUATTDRO 19:14 → 3ANU 19:36
PROVIDERS: ADMIT Internal Medicine Nephrology; ATTEND Hospitalist